=== PATIENT | female | born 2000 | race Caucasian/White ===

== ENCOUNTER 2019-04-02 13:40 | Emergency (ER) | payer OTHER ==
--- NOTE | 2019-04-02 13:58 | ER Document Report ---
ED Medical Screen (RME) - General Chief Complaint: Flank Pain Stated Complaint: FLANK PAIN Time Seen by Provider: 04/02/19 13:54 Mode of Arrival: Ambulatory Information source: Patient Notes: This 18-year-old female presents emergency department with complaints of bilateral flank pain for about a month with recent treatment for UTI last week. Reports she was on the antibiotic for 4 to 5 days. Reports bilateral flank pain radiating to abdomen. Reports a little bit of pain with void but not much now I have greeted and performed a rapid initial assessment of this patient. A comprehensive ED assessment and evaluation of the patient, analysis of test results and completion of the medical decision making process will be conducted by additional ED providers. Dictation of this chart was performed using voice recognition software; therefore, there may be some unintended grammatical errors. - Related Data Allergies/Adverse Reactions: No Known Allergies Allergy (Verified 04/02/19 13:50) Physical Exam - Vital signs Vitals: Temp Pulse Resp BP Pulse Ox 98.4 F 74 18 112/58 L 100 04/02/19 13:52 04/02/19 13:52 04/02/19 13:52 04/02/19 13:52 04/02/19 13:52 Course - Vital Signs Vital signs: Temp Pulse Resp BP Pulse Ox 98.4 F 74 18 112/58 L 100 04/02/19 13:52 04/02/19 13:52 04/02/19 13:52 04/02/19 13:52 04/02/19 13:52
[2019-04-02 14:33] LABS: ABSOLUTE BASOPHILS # (AUTO) 0.1 10^3/uL (0.0-0.2); ABSOLUTE EOSINOPHILS # (AUTO) 0.1 10^3/uL (0.0-0.6); ABSOLUTE MONOCYTES (AUTO) 0.7 10^3/uL (0.1-1.4); ABSOLUTE NEUT (AUTO) 5.1 10^3/uL (1.7-8.2); BASOPHILS % (AUTO) 0.7 % (0-2); EOSINOPHILS % (AUTO) 1.9 % (0-6); HEMATOCRIT 38.8 % (36.0-47.0); HEMOGLOBIN 12.7 g/dL (12.0-15.5); LYMPHOCYTES % (AUTO) 24.7 % (13-45); MEAN CORPUSCULAR HEMOGLOBIN 26.9 pg (27.0-33.4); MEAN CORPUSCULAR HGB CONC 32.7 g/dL (32.0-36.0); MEAN CORPUSCULAR VOLUME 82 fl (80-97); MONOCYTES % (AUTO) 8.3 % (3-13); PLATELET COUNT 360 10^3/uL (150-450); RED BLOOD COUNT 4.72 10^6/uL (3.72-5.28); RED CELL DISTRIBUTION WIDTH 15.8 % (11.5-14.0); SEGMENTED NEUTROPHILS % (AUTO) 64.4 % (42-78); TOTAL CELLS COUNTED % (AUTO) 100 %; WHITE BLOOD COUNT 7.9 10^3/uL (4.0-10.5)
[2019-04-02 14:53] LABS: ALBUMIN 4.3 g/dL (3.7-5.6); ALKALINE PHOSPHATASE 104 U/L (50-135); ANION GAP 11 (5-19); ASPARTATE AMINO TRANSFERASE 21 U/L (5-30); BILIRUBIN,DIRECT 0.1 mg/dL (0.0-0.4); BILIRUBIN,TOTAL 0.3 mg/dL (0.2-1.3); BLOOD UREA NITROGEN 10 mg/dL (7-20); CALCIUM 9.8 mg/dL (8.4-10.2); CARBON DIOXIDE 26 mmol/L (22-30); CHLORIDE 105 mmol/L (98-107); GLUCOSE 88 mg/dL (75-110); POTASSIUM 4.3 mmol/L (3.6-5.0); TOTAL PROTEIN 7.9 g/dL (6.3-8.2)
[2019-04-02 14:56] LABS: APPEARANCE,URINE SLIGHTLY-CLOUDY; BILIRUBIN,URINE NEGATIVE (NEGATIVE); COLOR,URINE YELLOW; GLUCOSE, URINE NEGATIVE (NEGATIVE); KETONES,URINE NEGATIVE (NEGATIVE); LEUKOCYTE ESTERASE,URINE NEGATIVE (NEGATIVE); NITRITE,URINE NEGATIVE (NEGATIVE); PROTEIN,URINE NEGATIVE (NEGATIVE); UROBILINOGEN,URINE NEGATIVE mg/dL (<2.0)
--- NOTE | 2019-04-02 16:33 | ER Document Report ---
ED General - General Chief Complaint: Flank Pain Stated Complaint: FLANK PAIN Time Seen by Provider: 04/02/19 13:54 Primary Care Provider: OLYA KOTHARI MD [Primary Care Provider] - Follow up as needed Mode of Arrival: Ambulatory TRAVEL OUTSIDE OF THE [place] IN LAST 30 DAYS: No - Related Data Allergies/Adverse Reactions: No Known Allergies Allergy (Verified 04/02/19 13:50) Past Medical History - General Information source: Patient - Social History Smoking Status: Never Smoker Chew tobacco use (# tins/day): No Frequency of alcohol use: None Drug Abuse: None Family History: None - Noncontributory Patient has suicidal ideation: No Patient has homicidal ideation: No Past Surgical History: Reports: Hx Section Physical Exam - Vital signs Vitals: Temp Pulse Resp BP Pulse Ox 98.4 F 74 18 112/58 L 100 04/02/19 13:52 04/02/19 13:52 04/02/19 13:52 04/02/19 13:52 04/02/19 13:52 - Notes Notes: Patient presents emerge department complaining of bilateral flank pain for the past month. The pain is been fairly constant. Denies any trauma falls or heavy lifting. 2 previous back pain. She does report she was told several years ago by digital content specialist that she had some kidney disease and was told to drink plenty of fluids does not remember what type of disease. She was never referred to a pin drafting machine operator. Any fevers or cough associated with this. Development of nausea but no vomiting or abdominal pain. Chest pain shortness of breath Patient reports that about 10 days ago she developed some urgency and frequency. She was seen a couple days letter in urgent care center diagnosed with a UTI treated with Macrobid with resolution of her dysuria and frequency however the back pain never resolved. Past medical history is unremarkable Social history she does not smoke or drink at all. Last menstrual period ended yesterday Review of systems pertinent positives and negatives in HPI otherwise all the systems were reviewed and acutely negative PHYSICIAN EXAM -vital signs are noted triage note and note from triage reviewed GENERAL: Well-appearing, well-nourished and in _no acute distress HEAD: Atraumatic, normocephalic. EYES: Pupils equal round and reactive to light, extraocular movements intact, sclera anicteric, conjunctiva are normal. ENT: nares patent, oropharynx clear without exudates. Moist mucous membranes. NECK: supple without lymphadenopathy LUNGS: Breath sounds clear to auscultation bilaterally and equal. No wheezes rales or rhonchi. HEART: Regular rate and rhythm without murmurs ABDOMEN: Soft, nontender, normoactive bowel sounds. EXTREMITIES: No deformity, no edema. NEUROLOGICAL: Alert and oriented x4. Motor strength is 5/5 bilateral lower extremities. Sensation intact light touch and no pain with straight leg raise PSYCH: Normal mood, normal affect. SKIN: Warm, Dry, normal turgor, no rashes or lesions noted. BACK-nontender in the midline no pain with sitting she is at plus minus CVA tenderness is also some minimal tenderness in the vertebral area bilaterally Course - Re-evaluation Re-evalutation: 04/02/19 18:56 ED patient is remained stabl Medical decision making patient presents with back pain is been gone for about the past month. Is any history of trauma pain is not reproducible by suspect the bottom line is that she has some muscular skeletal component to her pain no evidence of kidney stones and there is no acute intra-abdominal process. Any chest pain or shortness of breath no neurological symptoms. She reports symptoms consistent with a UTI last week resolved with treatment. Urine today is unremarkable. This point I think the patient can be discharged home to rest take Motrin for pain and follow-up with the family doctor he may need physical therapy or an MRI at some point Dictation was done using voice recognition software. There may be some grammatical errors which are unintentional - Vital Signs Vital signs: Temp Pulse Resp BP Pulse Ox 98.1 F 91 H 16 114/61 100 04/02/19 19:09 04/02/19 19:09 04/02/19 19:09 04/02/19 19:09 04/02/19 19:09 - Laboratory Result Diagrams: 04/02/19 14:15 04/02/19 14:15 Laboratory results interpreted by me: 04/02/19 14:15 MCH 26.9 L RDW 15.8 H Discharge - Discharge Clinical Impression: Back pain Condition: Good Disposition: HOME, SELF-CARE Instructions: Low Back Pain ([facility]) Additional Instructions: Please review the discharge instructions, they will tell you about your disease/ injury and what you need to return to the ED for Return to the ED if you feel worse or can follow-up with your family doctor Avoid bending or heavy lifting Take 2 Motrin 3 times a day for the next 5 days Follow-up with your family doctor in 3 to 5 days Referrals: OLYA KOTHARI MD [Primary Care Provider] - Follow up as needed
--- NOTE | 2019-04-02 18:24 | RADIOLOGY REPORT (SQ) ---
EXAM DESCRIPTION: CT ABD/PELVIS WITH IV ONLY COMPLETED DATE/TIME: 04/02/2019 5:59 pm REASON FOR STUDY: Flank pain COMPARISON: None. TECHNIQUE: CT scan of the abdomen and pelvis performed using helical scanning technique with dynamic intravenous contrast injection. No oral contrast. Images reviewed with lung, soft tissue, and bone w indows. Reconstructed coronal and sagittal MPR images reviewed. Delayed images for evaluation of the urinary system also acquired. All images stored on PACS. All CT scanners at this facility use dose modulation, iterative reconstruction, and/or weight based d osing when appropriate to reduce radiation dose to as low as reasonably achievable (ALARA). [facility]: Dose Right [facility]: CareDose [facility]: Dose Right [facility]: Teradose 4D [facility]: The Mad Video CONTRAST TYPE AND DOSE: contrast/concentration: Isovue 350.00 mg/ml; Total Contrast Delivered: 100.0 ml; Total Saline Delivered: 72.0 ml RENAL FUNCTION: GFR > 60. RADIATION DOSE: CT Rad equipment meets quality standard of care and radiation dose reduction techniq ues were employed. CTDIvol: 14.4 - 18.2 mGy. DLP: 1851 mGy-cm.. LIMITATIONS: None. FINDINGS: LOWER CHEST: No significant findings. LIVER: Normal size. No enhancing masses. No dilated ducts. SPLEEN: Normal size. No focal lesions. PANCREAS: No masses identified. No significant calcifications. No adjacent inflammation or peripancre atic fluid collections. Pancreatic duct not dilated. GALLBLADDER: No calcified stones. No inflammatory changes to suggest cholecystitis. ADRENAL GLANDS: No significant masses. RIGHT KIDNEY AND URETER: No cysts identified. No solid masses identified. No calcified stones. No hyd ronephrosis or hydroureter. LEFT KIDNEY AND URETER: No cysts identified. No solid masses identified. No calcified stones. No hydr onephrosis or hydroureter. AORTA AND VESSELS: No aneurysm. No dissection. Renal arteries, SMA, celiac without significant stenos is. RETROPERITONEUM: No bulky retroperitoneal adenopathy. BOWEL AND PERITONEAL CAVITY: No obstruction or inflammatory changes. No free fluid. APPENDIX: Normal. PELVIS: No mass. No free fluid. Unremarkable bladder. ABDOMINAL WALL: No masses. No hernias. BONES: No acute findings. OTHER: No other significant finding. IMPRESSION: NO ACUTE FINDINGS IN THE ABDOMEN OR PELVIS ON CT SCAN WITH IV CONTRAST. TECHNICAL DOCUMENTATION: JOB ID: [id number] Quality ID # [id number]: Final reports with documentation of one or more dose reduction techniques (e.g., Au tomated exposure control, adjustment of the mA and/or kV according to patient size, use of iterative reconstruction technique) 2010 [employer]- All Rights Reserved Reading location - IP/workstation name: [email or web address]
[2019-04-02 19:10] VITALS: BP 114/61
== END 2019-04-02 19:29 | disposition home or self-care (01) ==
LOC: ER 13:40
DX: M54.9 Dorsalgia, unspecified (principal); R10.9 Unspecified abdominal pain; R39.15 Urgency of urination; R35.0 Frequency of micturition; R11.0 Nausea
CPT/HCPCS: 36415; 74177; 80053; 81001; 81025; 83690; 85025

== ENCOUNTER → 2020-03-17 | Outpatient (CLI) | payer OTHER ==
--- NOTE | 2020-03-17 14:54 | RADIOLOGY REPORT (SQ) ---
EXAM DESCRIPTION: LUMBAR SPINE COMPLETE IMAGES COMPLETED DATE/TIME: 03/17/2020 2:47 pm REASON FOR STUDY: LUMBAR RADICULOPATHY M54.16 RADICULOPATHY, LUMBAR REGION COMPARISON: None. NUMBER OF VIEWS: Five views including obliques. TECHNIQUE: AP, lateral, oblique, and sacral radiographic images acquired of the lumbar spine. LIMITATIONS: None. FINDINGS: MINERALIZATION: Normal. SEGMENTATION: Normal. No transitional anatomy. ALIGNMENT: Straightening of the normal lumbar lordosis. VERTEBRAE: Maintained height. No fracture or worrisome bone lesion. DISCS: Preserved height. No significant osteophytes or end plate irregularity. POSTERIOR ELEMENTS: Pedicles and facets are intact. No pars defect or posterior arch defects. HARDWARE: None in the spine. PARASPINAL SOFT TISSUES: Normal. PELVIS: Intact as visualized. No fractures or worrisome bone lesions. SI joints intact. OTHER: No other significant finding. IMPRESSION: NORMAL 5 VIEW LUMBAR SPINE. TECHNICAL DOCUMENTATION: JOB ID: [id number] 2010 [employer]- All Rights Reserved Reading location - IP/workstation name: [email or web address]
== END ==
LOC: OD 14:23
PROVIDERS: ATTEND Nurse Practitioner Family
DX: M54.16 Radiculopathy, lumbar region (principal)
CPT/HCPCS: 72110